=== PATIENT | female | born 1935 | race Caucasian/White ===

== ENCOUNTER → 2023-08-24 08:02 | Outpatient (REF) | payer OTHER, SELFPAY | LOC: HWEVLT 08:02 | PROVIDERS: ATTENDING PHYSICIAN Radiology Diagnostic Radiology | DX: I83.893 Varicose veins of bilateral lower extremities with other complications (principal) | CPT/HCPCS: 93970 ==

== ENCOUNTER → 2023-10-28 10:49 | Outpatient (REF) | payer OTHER, SELFPAY | LOC: HWEVLT 10:49 | PROVIDERS: ATTENDING PHYSICIAN Radiology Vascular & Interventional Radiology | DX: I83.891 Varicose veins of right lower extremity with other complications (principal) | CPT/HCPCS: 36471 ==